=== PATIENT | female | born 1975 ===

== ENCOUNTER 2017-12-09 17:16 | Emergency (ER) | payer OTHER ==
[2017-12-09] MEDS ORDERED: Sodium Chloride 0.9% 1,000 ML IV STA (18:36)
[2017-12-09 19:24] LABS: ALB/GLOB RATIO 1.1 (1.0-2.1); ALBUMIN 4.1 g/dL (3.5-5.0); ALT/SGPT 39 U/L (9-52); AST/SGOT 30 U/L (14-36); BLOOD UREA NITROGEN 19 mg/dl (7-17); CALCIUM 9.2 mg/dL (8.4-10.2); GFR AFRICAN-AMERICAN > 60; GFR NON-AFRICAN AMERICAN > 60
[2017-12-09 19:27] LABS: BASO # 0.1 K/uL (0.0-0.2); BASO % 1.2 % (0.0-2.0); EOS # 0.2 K/uL (0.0-0.7); EOS % 3.9 % (0.0-4.0); HEMOGLOBIN 13.9 g/dL (12.0-16.0); LYMPH # 2.2 K/uL (1.0-4.3); LYMPH % 34.9 % (20.0-40.0); MEAN CELL VOLUME 95.9 fl (81.0-99.0); MEAN CORPUSCULAR HEMOGLOBIN 31.9 pg (27.0-31.0); MEAN CORPUSCULAR HGB CONC 33.3 g/dL (33.0-37.0); MEAN PLATELET VOLUME 8.8 fl (7.2-11.7); MONO # 0.6 K/uL (0.0-0.8); MONO % 9.7 % (0.0-10.0); NEUT # 3.1 K/uL (1.8-7.0); NEUT % 50.3 % (50.0-75.0); NRBC % 0.2 % (0.0-0.0); RBC 4.37 Mil/uL (3.80-5.20); RED CELL DISTRIBUTION WIDTH 12.8 % (11.5-14.5); WHITE BLOOD COUNT 6.2 K/uL (4.8-10.8)
--- NOTE | 2017-12-09 19:37 | ED PDOC ---
HPI: General Adult Time Seen by Provider: 12/09/17 17:27 Chief Complaint (Nursing): GI Problem History Per: Patient Additional Complaint(s): Pt. states for the past 2 week she's had intermittent fever, cough, congestion, fatigue. Pt. has been taking Theraflu and Advil 3 times in total. States that yesterday and today she's noticed 2 BM's with bright red blood. Denies abdominal pain, sick contacts, recent travel, chest pain, SOB, N/V/D, rectal pain, prolonged NSAID use, anticoagulant use. Past Medical History Reviewed: Historical Data, Nursing Documentation, Vital Signs Vital Signs: Last Vital Signs Temp 97.2 F L 12/09/17 17:20 Pulse 76 12/09/17 17:20 Resp 18 12/09/17 17:20 BP 135/90 12/09/17 17:20 Pulse Ox 99 12/09/17 19:41 - Family History Family History: States: No Known Family Hx - Home Medications Home Medications: Ambulatory Orders Medication Instructions Recorded Azithromycin [Zithromax] 250 mg PO DAILY #6 tab 12/09/17 Promethazine DM [Phenergan DM 5 - 10 ml PO Q8 PRN #120 ml 12/09/17 Syrup] - Allergies Allergies/Adverse Reactions: Allergies Allergy/AdvReac Type Severity Reaction Status Date / Time Sulfa (Sulfonamide Allergy ANAPHYLAXIS Verified 12/09/17 17:20 Antibiotics) Review of Systems ROS Statement: Except As Marked, All Systems Reviewed And Found Negative Constitutional: Positive for: Fever, Weakness, Malaise ENT: Positive for: Nose Congestion, Throat Pain Respiratory: Positive for: Cough Gastrointestinal: Positive for: Hematochezia Physical Exam - Reviewed Nursing Documentation Reviewed: Yes Vital Signs Reviewed: Yes - Physical Exam Appears: Positive for: Well, Non-toxic, No Acute Distress Head Exam: Positive for: ATRAUMATIC, NORMAL INSPECTION, NORMOCEPHALIC Skin: Positive for: Normal Color, Warm. Negative for: Rash Eye Exam: Positive for: EOMI, Normal appearance, PERRL ENT: Positive for: Normal ENT Inspection. Negative for: Pharyngeal Erythema, Tonsillar Exudate, Tonsillar Swelling Neck: Positive for: Normal, Painless ROM Cardiovascular/Chest: Positive for: Regular Rate, Rhythm Respiratory: Positive for: Normal Breath Sounds. Negative for: Respiratory Distress Gastrointestinal/Abdominal: Positive for: Normal Exam, Soft. Negative for: Tenderness Back: Positive for: Normal Inspection. 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 Negative for: Black Stool , Blood Streaked Stool, Hemorrhoids, Mass, Tenderness Extremity: Positive for: Normal ROM Neurologic/Psych: Positive for: Alert, Oriented. Negative for: Aphasia, Facial Droop - Laboratory Results Result Diagrams: 12/09/17 18:58 12/09/17 18:58 - ECG O2 Sat by Pulse Oximetry: 99 - Radiology X-Ray: Interpreted by Me (CXR) X-Ray Interpretation: No Acute Disease - Progress ED Course And Treament: Labs, CXR, IV NS bolus x 1 ordered. 2042 On re-evaluation, pt. reports feeling better. Pt informed of results and instructed to return to ED immediately. Discussed ineffectivity of Tamiflu at this stage in her illness. Pt. agrees that she does not require it and states she does not want it. Disposition - Clinical Impression Clinical Impression: Influenza-like illness, Rectal bleeding - Patient ED Disposition Is Patient to be Admitted: No - Disposition Referrals: [facility] [Outside] [facility] [Outside] Disposition: Routine/Home Disposition Time: 20:45 Condition: STABLE Additional Instructions: Return to ED immediately if symptoms persist or worsen. Follow up with [facility] for further evaluation . Prescriptions: Azithromycin [Zithromax] 250 mg PO DAILY #6 tab Promethazine DM [Phenergan DM Syrup] 5 - 10 ml PO Q8 PRN #120 ml PRN Reason: Cough Instructions: Viral Syndrome (DC), Bloody Stools, Adult (DC) Forms: [facility] (Mongolian) Print Language: MALTESE
[2017-12-09 21:37] VITALS: BP 132/86; PULSE 82; RESP 17; TEMP 98.9; O2SAT 98
--- NOTE | 2017-12-10 08:58 | RAD ---
HISTORY: cough COMPARISON: No prior. TECHNIQUE: Chest PA and lateral FINDINGS: LUNGS: No active pulmonary disease. PLEURA: No significant pleural effusion identified. No pneumothorax apparent. CARDIOVASCULAR: Normal. OSSEOUS STRUCTURES: No significant abnormalities. VISUALIZED UPPER ABDOMEN: Normal. OTHER FINDINGS: None. IMPRESSION: No active disease.
== END 2017-12-09 21:37 | disposition home or self-care (01) ==
LOC: H.ER 17:16
DX: J11.1 Influenza due to unidentified influenza virus with other respiratory manifestations (principal); K62.5 Hemorrhage of anus and rectum
CPT/HCPCS: 71046; 80053; 81025; 85025; 86308; 86850; 86900; 87040; 87070; 87430; 87804; 96360; 99284; G0328; J7040